=== PATIENT | male | born 1960 | race Caucasian/White ===

== ENCOUNTER → 2016-05-16 | Outpatient (CLI) | payer OTHER ==
--- NOTE | 2016-05-16 13:46 | MR ---
EXAMINATION TYPE: MR brain wo con DATE OF EXAM: 05/16/2016 12:06 PM COMPARISON: 05/01/2014 HISTORY: Headaches, Dizziness CONTRAST: None TECHNIQUE: Multiplanar, multiecho imaging on a 3.0 Gabby magnet is performed through the brain. Stud y is performed within 24 hours of arrival to the hospital. Standard brain protocols were utilized. The craniovertebral junction is normal. The pituitary is normal. Diffusion-weighted imaging is performed. No abnormal hyperintensity is present to suggest an acute i ntracranial infarct or acute ischemic change. There are a few small areas of hyperintensity within the centrum semiovale. The largest in the perive ntricular white matter superior to the left occipital horn measures 0.5 x 0.6 cm. There is stable fro m prior study. There is a 0.4 cm hyperintensity within the subcortical white matter appears slightly smaller than the comparison study. Number and distribution of the white matter changes appears stabl e from 05/01/2014. New lesions are not identified. No enlarging lesions are identified. Ventricles and sulci are appropriate for the patient age. Mucosal thickening is within the left maxillary sinus. Retention cyst may be within the inferior left maxillary sinus. Mucosal thickening is within ethmoid air cells. Right frontal sinus mucosal thicken ing is present. IMPRESSIONS: 1. Stable or smaller scattered bilateral punctate nodularities within the deep white matter. Differen tial could include multiple sclerosis.
== END | disposition home or self-care (01) ==
LOC: RADMRIMAIN 11:27
PROVIDERS: ATTEND Psychiatry & Neurology Neurology
DX: R51 Headache (principal); R42 Dizziness and giddiness; Z88.6 Allergy status to analgesic agent
CPT/HCPCS: 70551

== ENCOUNTER → 2017-06-18 | Outpatient (CLI) | payer OTHER ==
--- NOTE | 2017-06-18 12:25 | MR ---
EXAMINATION TYPE: MR lumbar spine wo con DATE OF EXAM: 06/18/2017 COMPARISON: 11/12/2014 HISTORY: 57-year-old male with Low back pain TECHNIQUE: Multiplanar, multisequence images of the lumbar spine were acquired. FINDINGS: Vertebral body heights are preserved and alignment is maintained. Mild heterogeneity of marrow signal without suspicious bone marrow replacement. Some islands of fatty marrow or fatty matrix hemangiomas are present such as on the left at L5. Variable mild intervertebral disc desiccation mid to lower lumbar spine with bulging discs from L3 th rough S1 levels. Facet arthropathy mid to lower lumbar spine. Conus medullaris is normal. At T12-L1, no canal or foraminal stenosis. At L1-L2, no canal or foraminal stenosis. At L2-L3, no canal or foraminal stenosis. At L3-L4, minimal bulging disc and mild ligamentum flavum thickening. No significant canal or foramin al stenosis. At L4-L5, mild facet degenerative change and mild ligamentum flavum thickening. Mild bulging disc is also present with a mild right neuroforaminal stenosis. No spinal canal stenosis. At L5-S1, diffuse disc bulge is present with mild facet degenerative change. Suggestion of left parac entral annular fissure, increased from prior. Disc material closely approaches but does not clearly c ontact either traversing S1 nerve roots. There is mild left neuroforaminal stenosis without spinal ca nal stenosis. No prevertebral or paravertebral soft tissue abnormality. IMPRESSION: 1. Mild degenerative disc disease mid to lower lumbar spine minimally progressed from 2014. A left pa racentral annular fissure at L5-S1 is new. 2. Additional ligamentum flavum thickening and mild facet arthropathy mid to lower lumbar spine, rela tively similar. 3. Disc material closely approaches but does not clearly contact either traversing S1 nerve root at t he L5-S1 level. 4. Mild right neuroforaminal stenosis at L4-L5 and mild left neuroforaminal stenosis at L5-S1.
== END | disposition home or self-care (01) ==
LOC: RADMRIMAIN 11:28
PROVIDERS: ATTEND Psychiatry & Neurology Neurology
DX: M48.061 Spinal stenosis, lumbar region without neurogenic claudication (principal); M99.73 Connective tissue and disc stenosis of intervertebral foramina of lumbar region; M51.36 Other intervertebral disc degeneration, lumbar region; M46.96 Unspecified inflammatory spondylopathy, lumbar region; M24.28 Disorder of ligament, vertebrae; Q05.7 Lumbar spina bifida without hydrocephalus; Z88.6 Allergy status to analgesic agent
CPT/HCPCS: 72148

== ENCOUNTER → 2018-08-21 | Outpatient (CLI) | payer OTHER | END | disposition home or self-care (01) | LOC: RADUSWWP 12:12 | PROVIDERS: ATTEND Family Medicine | DX: I83.93 Asymptomatic varicose veins of bilateral lower extremities (principal) | CPT/HCPCS: 93922 ==

== ENCOUNTER → 2022-08-31 | Outpatient (CLI) | payer OTHER ==
--- NOTE | 2022-08-31 12:40 | US ---
EXAMINATION TYPE: US carotid duplex BILAT DATE OF EXAM: 08/31/2022 COMPARISON: NONE CLINICAL INDICATION: Male, 62 years old with history of R22.9, E78.2, Z72.0, I10, I83.93; stenosis TECHNIQUE: Carotid duplex ultrasound examination. Indirect Doppler criteria was utilized. 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 Criteria for Assigning % of Stenosis / Diameter reduction (Estimation based on the indirect measurements of the internal carotid artery velocities (ICA PSV). 1. Normal (no stenosis)=ICA PSV < 125 cm/s: ratio < 2.0: ICA EDV<40 cm/s. 2. Less than 50% stenosis=ICA PSV < 125 cm/s: ratio < 2.0: ICA EDV<40 cm/s. 3. 50 to 69% stenosis=ICA PSV of 125 to 230 cm/s: ration 2.0 ? 4.0: ICA EDV 40-100 cm/s. 4. Greater than 70% stenosis to near occlusion= ICA PSV > 230 cm/s: ratio > 4.0: ICA EDV > 100 cm/s. 5. Near occlusion= ICA PSV velocities may be low or undetectable: variable ratio and ICA EDV. 6. Total occlusion=unable to detect flow.
== END | disposition home or self-care (01) ==
LOC: RADUSWWP 10:50
PROVIDERS: ATTEND Family Medicine
DX: R22.9 Localized swelling, mass and lump, unspecified (principal); E78.2 Mixed hyperlipidemia; I83.93 Asymptomatic varicose veins of bilateral lower extremities; I10 Essential (primary) hypertension; Z72.0 Tobacco use
CPT/HCPCS: 93880

== ENCOUNTER → 2022-09-26 | Outpatient (CLI) | payer OTHER ==
--- NOTE | 2022-09-26 22:54 | US ---
EXAMINATION TYPE: US extremity nonvasc mass RT DATE OF EXAM: 09/26/2022 COMPARISON: NONE CLINICAL INDICATION: Male, 62 years old with history of R22.9 E78.2 Z72.0 I10 I83.93; Pt states palpa ble lump right medial calf x 2 years Right medial calf in area of pt's palpable scanned- no abnormality appreciated at this time FINDINGS: Real-time linear array sonography appears unremarkable through the region of the palpable abnormality within the calf. No discrete solid or cystic areas are evident. Clinical management is re commended. IMPRESSION: 1. Negative ultrasound for palpable calf abnormality. Clinical management recommended.
== END | disposition home or self-care (01) ==
LOC: RADUSWWP 13:15
PROVIDERS: ATTEND Family Medicine
DX: I10 Essential (primary) hypertension (principal); E78.2 Mixed hyperlipidemia; I83.93 Asymptomatic varicose veins of bilateral lower extremities; R22.41 Localized swelling, mass and lump, right lower limb; Z72.0 Tobacco use

== ENCOUNTER → 2022-11-08 | Outpatient (CLI) | payer OTHER ==
--- NOTE | 2022-11-08 11:50 | US ---
EXAMINATION TYPE: US arterial LE single level DATE OF EXAM: 11/08/2022 11:06 AM CLINICAL INDICATION: Male, 62 years old with history of R22.9, E78.2, Z72.0, I10, I83.93; History of: Smoker: Yes Hypertension: Yes Diabetic: No Hyperlipidemia: Yes TIA/CVA: Yes 9 years ago Previous Vascular Surgery: No OH: No Doppler Waveforms: Right: Multiphasic Left: Multiphasic Right Brachial Pressure: 137 Left Brachial Pressure: 135 Ankle-Brachial Indices: Right: 1.09 Left: 1.07 Toe Brachial Indices: Right: 0.94 Left: 0.75 IMPRESSION: Normal ankle-brachial indices bilaterally.
== END | disposition home or self-care (01) ==
LOC: RADUSWWP 10:15
PROVIDERS: ATTEND Family Medicine
DX: E78.2 Mixed hyperlipidemia (principal); R22.9 Localized swelling, mass and lump, unspecified; I10 Essential (primary) hypertension; I83.93 Asymptomatic varicose veins of bilateral lower extremities; Z72.0 Tobacco use
CPT/HCPCS: 93922

== ENCOUNTER 2023-02-03 03:26 | Emergency (ER) | payer OTHER ==
[2023-02-03 03:47] VITALS: RESP 18; TEMP 97.5
[2023-02-03 04:10] LABS: Basophils # (A) 0.1 k/uL (0-0.2); Basophils % (A) 1 %; Eosinophils # (A) 0.3 k/uL (0-0.7); Eosinophils % (A) 4 %; HCT 43.9 % (39.0-53.0); HGB 14.7 gm/dL (13.0-17.5); Lymphocytes # (A) 1.6 k/uL (1.0-4.8); Lymphocytes % (A) 17 %; MCH 31.1 pg (25.0-35.0); MCHC 33.5 g/dL (31.0-37.0); MCV 92.9 fL (80.0-100.0); Mean Platelet Volume 7.1; Monocytes # (A) 0.5 k/uL (0-1.0); Monocytes % (A) 6 %; Neutrophils # (A) 6.5 k/uL (1.3-7.7); Neutrophils % (A) 71 %; Platelet Count 189 k/uL (150-450); RBC 4.72 m/uL (4.30-5.90); RDW 13.3 % (11.5-15.5)
[2023-02-03 04:19] LABS: ALT 24 U/L (4-49); AST 31 U/L (17-59); African American GFR (CKD) >90 (>60 ml/min/1.73 sqM); Albumin 4.6 g/dL (3.5-5.0); Alkaline Phosphatase 67 U/L (38-126); Anion Gap 9 mmol/L; Blood Urea Nitrogen 17 mg/dL (9-20); Calcium 9.7 mg/dL (8.4-10.2); Carbon Dioxide 27 mmol/L (22-30); Chloride 102 mmol/L (98-107); Glucose 119 mg/dL (74-99); Non-African American GFR(CKD) >90 (>60 ml/min/1.73 sqM); Potassium 4.3 mmol/L (3.5-5.1); Sodium 138 mmol/L (137-145); Total Bilirubin 0.4 mg/dL (0.2-1.3); Total Protein 7.5 g/dL (6.3-8.2)
[2023-02-03 04:23] LABS: INR 0.9 (<1.2); Partial Thromboplastin Time 22.7 sec (22.0-30.0); Prothrombin Time 10.4 sec (10.0-12.5)
--- NOTE | 2023-02-03 05:14 | ED ---
Chest Pain HPI - General Chief Complaint: Chest Pain Stated Complaint: Chest Pain Time Seen by Provider: 02/03/23 03:51 Source: patient Mode of arrival: wheelchair Limitations: no limitations - History of Present Illness Initial Comments: Chronically ill 63-year-old male with chronic pain presenting with left shoulder pain. Patient reports he is received joint injections in this joint for pain in the past. He reports that there is been no recent trauma or injuries but he has had worsening pain in that shoulder, there is pain with any type of range of motion. No fever no joint swelling. Last injection was over a year ago. Patient reports now the muscles in his anterior chest are getting sore. Patient states he has a known history of descending thoracic aneurysm and doesn't believe it's been checked in a few years so is worried with the pain moving from his arm to his chest that this may be related to that he should be evaluated. - Related Data Home Medications Medication Instructions Recorded Confirmed Albuterol Inhaler [Ventolin 2 puff INHALATION RT-Q6H PRN 12/21/13 02/07/16 Inhaler] Butalbital/Aspirin/Caffeine 1 cap PO BID PRN 12/22/13 02/07/16 [Fiorinal 50-325-40 mg Capsule] Beclomethasone Dipropionate [Qvar 1 puff INHALATION RT-BID 01/18/16 02/07/16 80 mcg] Gabapentin [Neurontin] 400 mg PO TID 01/18/16 02/07/16 HYDROcodone/APAP 10-325MG [Blackstone 1 tab PO TID PRN 01/18/16 02/07/16 10-325] Ipratropium [place] [Atrovent Hfa] 2 puff INHALATION RT-QID 01/18/16 02/07/16 Montelukast [Singulair] 10 mg PO HS 01/18/16 02/07/16 Nitroglycerin Sl Tabs [Nitrostat] 0.4 mg SUBLINGUAL Q5M PRN 01/18/16 02/01/16 Simvastatin [Zocor] 20 mg PO HS 01/18/16 02/07/16 atenoloL [Tenormin] 25 mg PO HS 01/18/16 02/07/16 busPIRone HCL 15 mg PO DAILY PRN 11/09/16 11/29/16 Allergies Allergy/AdvReac Type Severity Reaction Status Date / Time acetaminophen Allergy NAUSEA, Verified 02/03/23 03:33 ABD PAIN ibuprofen [From Motrin] Allergy NAUSEA, Verified 02/03/23 03:33 ABD PAIN Review of Systems ROS Statement: Those systems with pertinent positive or pertinent negative responses have been documented in the HPI. ROS Other: All systems not noted in ROS Statement are negative. EKG Findings - EKG Comments: EKG Findings:: EKG interpreted by me EKG obtained at 3:42 AM, rate is 70 rhythm is sinus normal intervals CT 152 QRS 13 QTC [address] elevations or depressions or evidence of ischemia or infarction. Past Medical History Past Medical History: COPD, Eye Disorder, Memory Impairment Additional Past Medical History / Comment(s): SPONTANEOUS RIGHT PNEUMOTHORAX, NO CHEST. Lesions on brain, back pain, neuropathy, emphysema, TIA, lumar puncture, ELIEZER. History of Any Multi-Drug Resistant Organisms: MRSA Date of last positivie culture/infection: 2010 MDRO Source:: left arm, left flank Past Surgical History: No Surgical Hx Reported Additional Past Surgical History / Comment(s): several fractures Past Anesthesia/Blood Transfusion Reactions: No Reported Reaction Past Psychological History: Anxiety Smoking Status: Current every day smoker Past Alcohol Use History: None Reported Past Drug Use History: Marijuana - Past Family History Sister(s) Family Medical History: Musculoskeletal Disorder Additional Family Medical History / Comment(s): MS Father Family Medical History: COPD, CVA/TIA Mother Family Medical History: Cancer, CVA/TIA General Exam Limitations: no limitations General appearance: alert, in no apparent distress, other (Appears older than stated age) Head exam: Present: atraumatic, normocephalic Neck exam: Absent: meningismus, lymphadenopathy Respiratory exam: Present: normal lung sounds bilaterally. Absent: respiratory distress Cardiovascular Exam: Present: regular rate, normal rhythm GI/Abdominal exam: Absent: distended Rectal exam: Present: deferred Extremities exam: Present: other (Decreased range of motion of the left shoulder secondary to pain, there is some visible spasm and fasciculation of the left pectoris muscle, there is no swelling or redness of the shoulder no signs of septic joint). Absent: joint swelling Back exam: Present: other (Scoliosis) Neurological exam: Present: alert, oriented X3 Psychiatric exam: Present: normal affect Skin exam: Present: warm, dry Course Vital Signs 02/03/23 02/03/23 03:33 06:40 Temperature 97.5 F L Pulse Rate 76 64 Respiratory 18 18 Rate Blood Pressure 123/74 118/73 O2 Sat by Pulse 98 98 Oximetry Chest Pain MDM - MDM Was pt. sent in by a medical professional or institution (NERISSA Campos, SEISMOGRAPH SUPERVISOR, urgent care, hospital, or long term...) When possible be specific @ -No Did you speak to anyone other than the patient for history (EMS, parent, family, police, friend...)? What history was obtained from this source @ -Son at bedside Did you review nursing and triage notes (agree or disagree)? Why? @ -I reviewed and agree with nursing and triage notes Were old charts reviewed (outside hosp., previous admission, EMS record, old EKG, old radiological studies, urgent care reports/EKG's, long term records)? Report findings @ -Previous visits were reviewed Differential Diagnosis (chest pain, altered mental status, abdominal pain women, abdominal pain men, vaginal bleeding, weakness, fever, dyspnea, syncope, headache, dizziness, GI bleed, back pain, seizure, CVA, palpatations, mental health)? @ -Differential Chest Pain: Stable Angina, Unstable Angina, STEMI, NSTEMI Aortic Dissection, Pneumothorax, Musculoskeletal, Esophageal Spasm GERD, Cholecystitis, Pancreatitis, Zoster, this is not meant to be an all-inclusive list. EKG interpreted by me (3pts min.). @ -As above X-rays interpreted by me (1pt min.). @ -No acute findings CT interpreted by me (1pt min.). @ -None done U/S interpreted by me (1pt. min.). @ -None done What testing was considered but not performed or refused? (CT, X-rays, U/S, labs)? Why? @ -None What meds were considered but not given or refused? Why? @ -None Did you discuss the management of the patient with other professionals (professionals i.e. NERISSA Campos, SEISMOGRAPH SUPERVISOR, lab, RT, psych nurse, health care social worker, bag inspector, teacher, sustainability officer, field case manager)? Give summary @ -No Was smoking cessation discussed for >3mins.? @ -No Was critical care preformed (if so, how long)? @ -No Were there social determinants of health that impacted care today? How? (Homelessness, low income, unemployed, alcoholism, drug addiction, transportation, low edu. Level, literacy, decrease access to med. care, fdc, rehab)? @ -No Was there de-escalation of care discussed even if they declined (Discuss DNR or withdrawal of care, Hospice)? DNR status @ -No What co-morbidities impacted this encounter? (DM, HTN, Smoking, COPD, CAD, Cancer, CVA, ARF, Chemo, Hep., AIDS, mental health diagnosis, sleep apnea, morbid obesity)? @ -COPD, hypertension, smoking, chronic pain Was patient admitted / discharged? Hospital course, mention meds given and route, prescriptions, significant lab abnormalities, going to OR and other pertinent info. @ -Discharge The patient was seen and evaluated patient has chronic pain and he has pain in the left shoulder. No chest pain no diaphoresis no shortness of breath. Patient's cardiac workup is negative. He was treated with pain medicine is to follow up outpatient. Undiagnosed new problem with uncertain prognosis? @ -No Drug Therapy requiring intensive monitoring for toxicity (Heparin, Nitro, Insulin, Cardizem)? @ -No Were any procedures done? @ -No Diagnosis/symptom? @ -Chronic pain Acute, or Chronic, or Acute on Chronic? @ -Chronic Uncomplicated (without systemic symptoms) or Complicated (systemic symptoms)? @ -default Side effects of treatment? @ -No Exacerbation, Progression, or Severe Exacerbation? @ -Exacerbation Poses a threat to life or bodily function? How? (Chest pain, [place], [place], pneumonia, PE, COPD, DKA, ARF, appy, cholecystitis, CVA, Diverticulitis, Homicidal, Suicidal, threat to staff... and all critical care pts) @ -No Disposition Clinical Impression: Left shoulder pain Disposition: HOME SELF-CARE Condition: Stable Additional Instructions: Follow up with orthopedics ([facility]) regarding the pain in your shoulder Is patient prescribed a controlled substance at d/c from ED?: No Referrals: Lila Leyva MD [Primary Care Provider] - 1-2 days Misha Espino MD [STAFF PHYSICIAN] - 1-2 days
--- NOTE | 2023-02-03 05:19 | XR ---
EXAM: XR Chest, 2 Views CLINICAL HISTORY: ITS.REASON XR Reason: chest pain TECHNIQUE: Frontal and lateral views of the chest. COMPARISON: No relevant prior studies available. FINDINGS: Lungs: Unremarkable. No consolidation. Pleural space: Unremarkable. No pneumothorax. Heart: Unremarkable. No cardiomegaly. Mediastinum: Unremarkable. Normal mediastinal contour. Bones/joints: Unremarkable. No acute fracture. IMPRESSION: Normal chest x-rays.
[2023-02-03] MEDS ORDERED: ORPHENADRINE 30 MG/ML 2 ML VIAL IM STA (05:41)
[2023-02-03] MEDS ORDERED: MORPHINE SULFATE 4 MG/ML SYRINGE IVP STA (05:41)
[2023-02-03 06:41] VITALS: BP 118/73; PULSE 64
== END 2023-02-03 06:41 | disposition home or self-care (01) ==
LOC: EC 03:26
DX: M25.512 Pain in left shoulder (principal); J43.9 Emphysema, unspecified; F41.9 Anxiety disorder, unspecified; F17.200 Nicotine dependence, unspecified, uncomplicated; F12.90 Cannabis use, unspecified, uncomplicated; Z86.73 Personal history of transient ischemic attack (TIA), and cerebral infarction without residual deficits; Z88.8 Allergy status to other drugs, medicaments and biological substances; Z88.6 Allergy status to analgesic agent; Z79.51 Long term (current) use of inhaled steroids; Z79.899 Other long term (current) drug therapy
CPT/HCPCS: 36415; 93005; 80053; 84484; 85025; 85610; 85730; 71046; 99285; 96374; 96372; J2270; J2360

== ENCOUNTER → 2023-12-13 | Outpatient (CLI) | payer OTHER ==
--- NOTE | 2023-12-13 11:44 | CTL ---
EXAMINATION TYPE: CT Low Dose Lung DATE OF EXAM ORDERED: 12/13/2023 History: Lung cancer screening CT DLP: [address] CTDI: 1.57 mGy Automated exposure control for dose reduction was used. Comparison: 04/30/2022 TECHNIQUE: Low dose computed tomography scan was performed through the chest at 1 mm thick sections a nd reconstructed images in multiple planes at 1 mm and [address] DIAGNOSTIC QUALITY: Satisfactory FINDINGS: There are moderate emphysematous changes with an upper lobe predominance. There is mild pleural-paren chymal scarring in the lung apices. There is no suspicious lung mass or nodule. There is no abnormal airspace consolidation or abnormal interstitial density. There is no pleural effusion, pleural thickening or pneumothorax. The great vessels just normal and there is no mediastinal, hilar or axillary adenopathy. Limited scanning through the upper abdomen reveals no gross abnormality. No focal destructive osseous lesions. IMPRESSION: 1. Lung rads category 1 negative. Continue routine screening yearly intervals. 2. No acute cardiopulmonary disease. 3. Moderate emphysematous changes. [facility], Workstation: [email or web address] 12/13/2023 11:41 AM
== END | disposition home or self-care (01) ==
LOC: RADCTMAIN 10:55
PROVIDERS: ATTEND Family Medicine
DX: Z12.2 Encounter for screening for malignant neoplasm of respiratory organs (principal); F17.210 Nicotine dependence, cigarettes, uncomplicated; J43.9 Emphysema, unspecified
CPT/HCPCS: 71271